=== PATIENT | male | born 2000 | race Two or more races ===

== ENCOUNTER 2021-05-08 09:15 | Emergency (ER) | payer OTHER ==
[2021-05-08] MEDS ORDERED: AZITHROMYCIN 500 MG TABLET PO ONE (10:15)
[2021-05-08] MEDS ORDERED: PENICILLIN G BENZATHINE LA 2,400,000 UNITS/4 ML SYRINGE IM ONE (10:15)
[2021-05-08] MEDS ORDERED: LIDOCAINE/PF 1% 2 ML VIAL IM ONE (10:15)
[2021-05-08] MEDS ORDERED: CefTRIAXone SODIUM 1 GM/VIAL IM ONE (10:15)
[2021-05-10 03:06] LABS: HIV 1-2 SCREEN 4TH GEN W/RFLX Non Reactive (Non Reactive)
== END 2021-05-08 12:05 | disposition home or self-care (01) ==
LOC: EMS 10:01
DX: A64 Unspecified sexually transmitted disease (principal)
CPT/HCPCS: 36415; 86592; 87389; 96372; 99284; J0561; J0696; J3490; Q9967